=== PATIENT | male | born 1960 | race Asian ===

== ENCOUNTER 2016-09-18 09:09 | Day surgery (SDC) | payer OTHER ==
[~2016-09-18] VITALS: Ht 170.2 cm; Wt 84.4 kg
[2016-09-18 09:56] VITALS: O2SAT 99
[2016-09-18] MEDS ORDERED: IOHEXOL 50 ML IV ONE (11:10)
[2016-09-18] MEDS ORDERED: NS IRRIG SOLN 1000 ML IR ONE (11:25)
[2016-09-18] MEDS ORDERED: LR 1,000 ML IV.SOLN IV ONE (11:25)
[2016-09-18] MEDS ORDERED: PROPOFOL 200MG/ 20ML VIAL (DIPRIVAN) IV ONE (11:25)
[2016-09-18] MEDS ORDERED: MIDAZOLAM HCL 5 MG/5 ML VIAL IVP ONE (11:25)
[2016-09-18] MEDS ORDERED: LR 1,000 ML IV SCH (12:11)
[2016-09-18] MEDS ORDERED: ONDANSETRON HCL 4 MG/2 ML VIAL IVP PRN (12:15)
[2016-09-18 13:08] VITALS: BP 138/73; PULSE 84; RESP 16
== END 2016-09-18 14:05 | disposition home or self-care (01) ==
LOC: SDS 09:09 → SMU 10:16 → SDS 14:05
PROVIDERS: ATTEND Internal Medicine
DX: K80.70 Calculus of gallbladder and bile duct without cholecystitis without obstruction (principal); I25.10 Atherosclerotic heart disease of native coronary artery without angina pectoris; M19.90 Unspecified osteoarthritis, unspecified site; G62.9 Polyneuropathy, unspecified; E11.9 Type 2 diabetes mellitus without complications; I25.119 Atherosclerotic heart disease of native coronary artery with unspecified angina pectoris
CPT/HCPCS: 43275; 74330; 82962; C1769; J2250; J2704; J7120; Q9967